=== PATIENT | male | born 1955 | race Caucasian/White ===

== ENCOUNTER 2021-09-08 15:08 | Observation (INO) | payer MEDICARE, SELFPAY ==
[2021-09-08] MEDS ORDERED: HYDROcodone/Acetaminophen 5/325 mg Tablet PO PRN (15:28)
[2021-09-08] MEDS ORDERED: Senokot S 8.6-50 MG TAB PO PRN (15:28)
[2021-09-08] MEDS ORDERED: Calcium Carbonate 500 MG ChewTAB PO PRN (15:28)
[2021-09-08] MEDS ORDERED: Guaifenesin DM 100-10/5 ML UDCUP PO PRN (15:28)
[2021-09-08] MEDS ORDERED: Ondansetron ODT 4 MG TAB PO PRN (15:28)
[2021-09-08] MEDS ORDERED: Acetaminophen 325 MG TAB PO PRN (15:28)
[2021-09-08] MEDS ORDERED: Loperamide HCl 2 MG CAP PO PRN (15:28)
[2021-09-08 15:40] LABS: #Basophils 0.1 10x3/uL (0.0-0.2); #Eosinphils 0.1 10x3/uL (0.0-0.5); #Monocytes 0.6 10x3/uL (0.0-1.1); #Neutrophils 5.3 10x3/uL (1.5-8.4); %Basophils 0.8 % (0.0-2.0); %Eosinophils 1.5 % (0.0-6.0); %Lymphocytes 21.1 % (18.0-47.0); %Monocytes 8.2 % (0.0-10.0); Hemoglobin 14.8 g/dL (13.5-17.5); Mean Corpuscular HGB CONC 34.3 g/dL (32.0-36.0); Mean Corpuscular Hemoglobin 31.3 pg (27.0-33.0); Mean Corpuscular Volume 91.1 fl (81.2-95.1); Mean Platelet Volume 9.3 fl (7.4-10.4); Platelet Count 220 10x3/uL (150-450); RBC Distribution Width 12.9 % (11.5-14.5); Red Blood Cell (RBC) Count 4.73 10x6/uL (4.32-5.72); White Blood Cell (WBC) Count 7.8 10x3/uL (3.5-10.5)
[2021-09-08] MEDS ORDERED: Communication Order-Pharmacy FS SCH (15:45)
[2021-09-08] MEDS ORDERED: Nitroglycerin 2% Ointment 1 INCH/1 GM Packet ONE (15:49)
[2021-09-08 15:56] LABS: ALT (SGPT) 33 U/L (8-55); AST (SGOT) 24 U/L (5-34); Albumin 4.3 g/dL (3.4-4.8); Alkaline Phosphatase 70 U/L (40-110); Anion Gap 14 mmol/L (10-20); BUN (Urea Nitrogen) 12 mg/dL (8.4-25.7); Bilirubin, Total 0.7 mg/dL (0.2-1.2); Calc. Creatinine Clearance 0 mL/min (70-130); Calcium 9.3 mg/dL (7.8-10.44); Carbon Dioxide 25 mmol/L (23-31); Chloride 105 mmol/L (98-107); Globulin 2.4 g/dL (2.4-3.5); Glucose 92 mg/dL (80-115); Potassium 3.9 mmol/L (3.5-5.1); Protein, Total 6.7 g/dL (5.8-8.1); Sodium 140 mmol/L (136-145)
[2021-09-08 16:05] LABS: Troponin I 0.405 ng/mL (< 0.028)
[2021-09-08 18:49] VITALS: BMI 27.1
[2021-09-08] MEDS: HYDROcodone/Acetaminophen 5/325 mg Tablet PO PRN (19:39)
[2021-09-08] MEDS: Nitroglycerin 2% Ointment 1 INCH/1 GM Packet TOP SCH (20:36)
[2021-09-08] MEDS: Nicotine 14 MG PATCH TD SCH (20:36)
[2021-09-09] MEDS: Sodium Chloride 0.9% 1,000 ML IV SCH ×2 (00:37→16:24)
[2021-09-09] MEDS: HYDROcodone/Acetaminophen 5/325 mg Tablet PO PRN ×2 (00:38→05:59)
[2021-09-09 02:36] LABS: SARS-CoV-2 NAA Rapid Test Not Detected (NotDetected)
[2021-09-09 04:57] LABS: Hemoglobin 13.9 g/dL (13.5-17.5); Mean Corpuscular Hemoglobin 32.1 pg (27.0-33.0); Mean Corpuscular Volume 91.7 fl (81.2-95.1); Mean Platelet Volume 9.4 fl (7.4-10.4); Platelet Count 187 10x3/uL (150-450); RBC Distribution Width 12.7 % (11.5-14.5); Red Blood Cell (RBC) Count 4.33 10x6/uL (4.32-5.72); White Blood Cell (WBC) Count 6.4 10x3/uL (3.5-10.5)
[2021-09-09 05:19] LABS: Anion Gap 14 mmol/L (10-20); BUN (Urea Nitrogen) 16 mg/dL (8.4-25.7); Calc. Creatinine Clearance 126 mL/min (70-130); Calcium 8.6 mg/dL (7.8-10.44); Carbon Dioxide 24 mmol/L (23-31); Cardiac Risk 6.3 (Less than 4.5); Chloride 107 mmol/L (98-107); Cholesterol 164 mg/dl (< 200 Desired); Glucose 94 mg/dL (80-115); HDL Cholesterol 26 mg/dL (>60 Neg Risk); LDL Cholesterol, Calculated 93 mg/dL; Potassium 4.1 mmol/L (3.5-5.1); Sodium 141 mmol/L (136-145); Triglycerides 224 mg/dL (Less than 150)
[2021-09-09] MEDS ORDERED: Ezetimibe 10 MG TAB PO SCH ×2 (05:45→09:00)
[2021-09-09] MEDS ORDERED: Amlodipine 5 MG TAB PO SCH ×2 (05:45→09:00)
[2021-09-09 05:49] LABS: MDiff Complete? YES
[2021-09-09 05:51] LABS: Eosinophils 3 % (0-10); Lymphocytes 25 % (21-51); Monocytes 10 % (0-10); Neutrophil 54 % (42-75); Reactive Lymphocytes 7 % (0-10)
[2021-09-09 05:53] LABS: Platelet Morphology Comment Appears Adequate
[2021-09-09 05:54] LABS: RBC Morphology Normal
[2021-09-09 06:04] LABS: PTT 25.9 sec (22.0-33.0); Prothrombin Time 10.4 sec (9.5-12.1)
[2021-09-09] MEDS ORDERED: Nitroglycerin 50 MG/250 ML BOT 250 ML ONE (07:16)
[2021-09-09] MEDS ORDERED: Heparin 10,000 UNITS/ 10 ML VIAL ONE ×2 (07:16→08:46)
[2021-09-09] MEDS ORDERED: Adenosine 6 MG/2 ML VIAL ONE (07:17)
[2021-09-09] MEDS ORDERED: Bivalirudin 250 MG VIAL ONE (07:17)
[2021-09-09] MEDS ORDERED: Verapamil 5 MG/2 ML VIAL ONE (07:17)
[2021-09-09] MEDS ORDERED: Lidocaine 1% 20 ML MDV ONE (07:19)
[2021-09-09] MEDS ORDERED: Lidocaine 1% MPF 2 ML VIAL ONE (07:19)
[2021-09-09] MEDS ORDERED: Midazolam HCl 2 mg/2 ml Vial ONE ×2 (07:20→09:04)
[2021-09-09] MEDS ORDERED: Fentanyl 100 MCG/2 ML VIAL ONE (07:20)
[2021-09-09] MEDS ORDERED: TICAGRELOR 90 MG TABLET ONE (08:33)
[2021-09-09] MEDS ORDERED: Aspirin 81 mg Enteric Coated Tablet PO SCH (09:00)
[2021-09-09] MEDS ORDERED: Nitroglycerin 0.4 MG TAB (25 Tab Bottle) SL PRN (09:13)
[2021-09-09] MEDS ORDERED: Sodium Chloride 0.9% 200 ML IV PRN (09:13)
[2021-09-09] MEDS ORDERED: Acetaminophen/Codeine 30-300mg Tablet PO PRN ×2 (09:13)
[2021-09-09 11:26] VITALS: BP 123/60; TEMP 98
[2021-09-09] MEDS ORDERED: Morphine 2 MG/ML VIAL SLOW IVP PRN (11:42)
[2021-09-09] MEDS ORDERED: Iopamidol 300 61% 100 ML VIAL FS ONE (12:37)
[2021-09-09] MEDS ORDERED: Iopamidol 300 61% 50 ML VIAL FS ONE (12:37)
[2021-09-09] MEDS: Nicotine 14 MG PATCH TD SCH (18:15)
[2021-09-09] MEDS: Nitroglycerin 2% Ointment 1 INCH/1 GM Packet TOP SCH (19:36)
[2021-09-09] MEDS ORDERED: TICAGRELOR 90 MG TABLET PO SCH (21:00)
[2021-09-10] MEDS ORDERED: Amlodipine 5 MG TAB PO SCH (09:00)
[2021-09-10] MEDS ORDERED: Ezetimibe 10 MG TAB PO SCH (09:00)
== END 2021-09-09 18:15 | disposition home or self-care (01) ==
LOC: CSHERS 15:08 → CSHTELE 16:48
PROVIDERS: ADMIT Specialist; ATTEND Specialist
PROC: B240ZZ3 Ultrasonography of Single Coronary Artery, Intravascular (ICD-10-PCS; principal; 2021-09-08)
PROC: 027135Z Dilation of Coronary Artery, Two Arteries with Two Drug-eluting Intraluminal Devices, Percutaneous Approach (ICD-10-PCS; 2021-09-08)
PROC: 4A023N7 Measurement of Cardiac Sampling and Pressure, Left Heart, Percutaneous Approach (ICD-10-PCS; 2021-09-08)
PROC: B2111ZZ Fluoroscopy of Multiple Coronary Arteries using Low Osmolar Contrast (ICD-10-PCS; 2021-09-08)
DX: I25.110 Atherosclerotic heart disease of native coronary artery with unstable angina pectoris (principal); I21.4 Non-ST elevation (NSTEMI) myocardial infarction; T82.855A Stenosis of coronary artery stent, initial encounter; I10 Essential (primary) hypertension; E78.5 Hyperlipidemia, unspecified; F17.210 Nicotine dependence, cigarettes, uncomplicated; M19.90 Unspecified osteoarthritis, unspecified site; I35.1 Nonrheumatic aortic (valve) insufficiency; Z86.73 Personal history of transient ischemic attack (TIA), and cerebral infarction without residual deficits; Z79.82 Long term (current) use of aspirin; Z79.899 Other long term (current) drug therapy; Z20.822 Contact with and (suspected) exposure to COVID-19
CPT/HCPCS: 71045; 80048; 80053; 80061; 84484 ×2; 85025 ×2; 85347 ×2; 85610; 85730; 92978; 93005 ×2; 93306; 93458; C1753; C1769 ×2; C1874 ×2; C1887 ×2; C1894 ×2; C9600; J2270; U0002; 36415; 92928; 93010; 96374; 99152; 99153; G0378; J0153; J0583; J1644; J2250; J3010; J7050; Q9967

== ENCOUNTER 2024-12-29 22:21 | Inpatient (IN) | payer MEDICARE ==
[2024-12-29 23:03] LABS: #Basophils 0.05 10x3/uL (0.0-0.2); #Eosinophils 0.11 10x3/uL (0.0-0.5); #Monocytes 0.55 10x3/uL (0.0-1.1); #Neutrophils 3.43 10x3/uL (1.5-8.4); %Basophils 0.9 % (0.0-2.0); %Eosinophils 2.0 % (0.0-6.0); %Lymphocytes 24.5 % (18.0-47.0); %Monocytes 10.0 % (0.0-10.0); %Neutrophils 62.2 % (40.0-75.0); Hematocrit 44.4 % (38.8-50.0); Hemoglobin 14.5 g/dL (13.5-17.5); Mean Corpuscular Hemoglobin 29.4 pg (27.0-33.0); Mean Corpuscular Volume 90.1 fL (81.2-95.1); Platelet Count 220 10x3/uL (150-450); Red Blood Cell (RBC) Count 4.93 10x6/uL (4.32-5.72); White Blood Cell (WBC) Count 5.51 10x3/uL (3.5-10.5)
[2024-12-29 23:48] LABS: ALT (SGPT) 28 U/L (Less than 45); AST (SGOT) 23 U/L (11-34); Albumin 4.0 g/dL (3.1-4.5); Alkaline Phosphatase 74 U/L (40-110); Anion Gap 14 mmol/L (10-20); BUN (Urea Nitrogen) 22 mg/dL (8.4-25.7); Bilirubin, Total 0.4 mg/dL (0.3-1.2); Calc. Creatinine Clearance 0 mL/min (70-130); Calcium 9.1 mg/dL (7.8-10.44); Carbon Dioxide 24 mmol/L (23-31); Chloride 110 mmol/L (98-107); Globulin 2.6 g/dL (2.4-3.5); Glucose 140 mg/dL (80-115); Potassium 4.0 mmol/L (3.5-5.1); Sodium 144 mmol/L (136-145)
[2024-12-30 00:08] LABS: Troponin I 0.292 ng/mL (< 0.028)
[2024-12-30] MEDS ORDERED: Aspirin Chewable 81 MG TAB ONE (01:00)
[2024-12-30] MEDS ORDERED: Melatonin 3 MG TAB PO PRN (01:21)
[2024-12-30] MEDS ORDERED: Calcium Carbonate 500 MG ChewTAB PO PRN (01:21)
[2024-12-30] MEDS ORDERED: Senokot S 8.6-50 MG TAB PO PRN (01:21)
[2024-12-30] MEDS ORDERED: Ondansetron PF 4 MG/2 ML Vial IVP PRN (01:21)
[2024-12-30] MEDS ORDERED: Acetaminophen 325 MG TAB PO PRN (01:21)
[2024-12-30] MEDS ORDERED: Guaifenesin DM 100-10/5 ML UDCUP PO PRN (01:21)
[2024-12-30] MEDS ORDERED: Nitroglycerin 0.4 MG TAB (25 Tab Bottle) SL PRN (01:24)
[2024-12-30 03:52] LABS: Cardiac Risk 4.4 (Less than 4.5); Cholesterol 145.0 mg/dl (< 200 Desired); HDL Cholesterol 33.0 mg/dL (>60 Neg Risk); LDL Cholesterol, Calculated 94.0 mg/dL; Triglycerides 88.0 mg/dL (Less than 150)
[2024-12-30 04:02] LABS: Troponin I 0.292 ng/mL (< 0.028)
[2024-12-30 08:20] LABS: Troponin I 0.257 ng/mL (< 0.028)
[2024-12-30] MEDS: Aspirin 81 mg Enteric Coated Tablet PO SCH ×2 (08:47→18:33)
[2024-12-30] MEDS: Famotidine 20 MG TAB PO SCH (08:47)
[2024-12-30] MEDS: Metoprolol Succinate XL 50 MG ER.TAB PO SCH (08:47)
[2024-12-30] MEDS: Ezetimibe 10 MG TAB PO SCH (08:51)
[2024-12-30] MEDS: FLU (Fluad Triv) 25-26 (65UP)PF 45 MCG/0.5 ML Syringe IM ONE (16:20)
[2024-12-30] MEDS ORDERED: Enoxaparin 80 MG (0.8 mL) SYRINGE SC SCH (21:00)
[2024-12-31] MEDS: Aspirin 81 mg Enteric Coated Tablet PO SCH (02:34)
[2024-12-31 05:13] LABS: #Basophils 0.04 10x3/uL (0.0-0.2); #Eosinophils 0.09 10x3/uL (0.0-0.5); #Monocytes 0.57 10x3/uL (0.0-1.1); #Neutrophils 4.44 10x3/uL (1.5-8.4); %Basophils 0.6 % (0.0-2.0); %Eosinophils 1.4 % (0.0-6.0); %Lymphocytes 21.5 % (18.0-47.0); %Monocytes 8.7 % (0.0-10.0); %Neutrophils 67.6 % (40.0-75.0); Hematocrit 42.9 % (38.8-50.0); Hemoglobin 14.2 g/dL (13.5-17.5); Mean Corpuscular Hemoglobin 29.3 pg (27.0-33.0); Mean Corpuscular Volume 88.5 fL (81.2-95.1); Platelet Count 206 10x3/uL (150-450); Red Blood Cell (RBC) Count 4.85 10x6/uL (4.32-5.72); White Blood Cell (WBC) Count 6.56 10x3/uL (3.5-10.5)
[2024-12-31 05:20] LABS: ALT (SGPT) 23 U/L (Less than 45); AST (SGOT) 20 U/L (11-34); Albumin 3.7 g/dL (3.1-4.5); Alkaline Phosphatase 66 U/L (40-110); Anion Gap 12 mmol/L (10-20); BUN (Urea Nitrogen) 16 mg/dL (8.4-25.7); Bilirubin, Total 0.6 mg/dL (0.3-1.2); Calc. Creatinine Clearance 119 mL/min (70-130); Calcium 8.9 mg/dL (7.8-10.44); Carbon Dioxide 24 mmol/L (23-31); Chloride 108 mmol/L (98-107); Globulin 2.6 g/dL (2.4-3.5); Glucose 90 mg/dL (80-115); Potassium 3.6 mmol/L (3.5-5.1); Sodium 140 mmol/L (136-145)
[2024-12-31] MEDS: Ezetimibe 10 MG TAB PO SCH (21:06)
[2025-01-01 00:52] VITALS: BMI 27.8
[2025-01-01 04:52] LABS: #Basophils 0.04 10x3/uL (0.0-0.2); #Eosinophils 0.10 10x3/uL (0.0-0.5); #Monocytes 0.63 10x3/uL (0.0-1.1); #Neutrophils 4.90 10x3/uL (1.5-8.4); %Basophils 0.5 % (0.0-2.0); %Eosinophils 1.3 % (0.0-6.0); %Lymphocytes 24.9 % (18.0-47.0); %Monocytes 8.3 % (0.0-10.0); %Neutrophils 64.7 % (40.0-75.0); Hematocrit 45.6 % (38.8-50.0); Hemoglobin 15.0 g/dL (13.5-17.5); Mean Corpuscular Hemoglobin 28.9 pg (27.0-33.0); Mean Corpuscular Volume 87.9 fL (81.2-95.1); Platelet Count 218 10x3/uL (150-450); Red Blood Cell (RBC) Count 5.19 10x6/uL (4.32-5.72); White Blood Cell (WBC) Count 7.58 10x3/uL (3.5-10.5)
[2025-01-01 05:08] LABS: ALT (SGPT) 25 U/L (Less than 45); AST (SGOT) 21 U/L (11-34); Albumin 3.8 g/dL (3.1-4.5); Alkaline Phosphatase 79 U/L (40-110); Anion Gap 14 mmol/L (10-20); BUN (Urea Nitrogen) 18 mg/dL (8.4-25.7); Bilirubin, Total 0.7 mg/dL (0.3-1.2); Calc. Creatinine Clearance 113 mL/min (70-130); Calcium 9.0 mg/dL (7.8-10.44); Carbon Dioxide 24 mmol/L (23-31); Chloride 107 mmol/L (98-107); Globulin 2.7 g/dL (2.4-3.5); Glucose 90 mg/dL (80-115); Potassium 3.8 mmol/L (3.5-5.1); Sodium 141 mmol/L (136-145)
[2025-01-01] MEDS ORDERED: PHENYLEPHRINE-NS 100 MCG/ML 10 ML SYRINGE ONE (07:03)
[2025-01-01] MEDS ORDERED: Heparin 10,000 UNITS/ 10 ML VIAL ONE (07:03)
[2025-01-01] MEDS ORDERED: Lidocaine 1% (PF) 30 ML VIAL ONE (07:03)
[2025-01-01] MEDS ORDERED: Communication Order-Pharmacy FS SCH (08:00)
[2025-01-01 08:32] VITALS: TEMP 98.3
[2025-01-01] MEDS: TICAGRELOR 90 MG TABLET PO SCH (09:23)
[2025-01-01] MEDS ORDERED: Iopamidol 300 61% 100 ML VIAL FS ONE (10:02)
[2025-01-01] MEDS ORDERED: Nitroglycerin 50 MG/250 ML BOT 250 ML ONE (12:08)
[2025-01-01 15:42] VITALS: BP 162/78
== END 2025-01-01 17:06 | disposition home or self-care (01) | DRG 287 ==
LOC: CSHERS 22:21 → CSHERHOLD 12-30 01:21 → CSHICU 12-30 06:05 → OBSVTOIN 12-30 14:45 → CSHTELE 12-30 16:49
PROVIDERS: ADMIT Student in an Organized Health Care Education/Training Program; ATTEND Hospitalist
PROC: B2111ZZ Fluoroscopy of Multiple Coronary Arteries using Low Osmolar Contrast (ICD-10-PCS; principal; 2024-12-30)
PROC: 4A023N7 Measurement of Cardiac Sampling and Pressure, Left Heart, Percutaneous Approach (ICD-10-PCS; 2024-12-30)
DX: R07.9 Chest pain, unspecified (principal); I24.9 Acute ischemic heart disease, unspecified; I10 Essential (primary) hypertension; F17.210 Nicotine dependence, cigarettes, uncomplicated; I16.0 Hypertensive urgency; I25.10 Atherosclerotic heart disease of native coronary artery without angina pectoris; E78.5 Hyperlipidemia, unspecified; H81.13 Benign paroxysmal vertigo, bilateral; R31.9 Hematuria, unspecified; Z95.5 Presence of coronary angioplasty implant and graft; Z98.890 Other specified postprocedural states
CPT/HCPCS: 36415; 71045; 80053; 80061; 83036; 84484; 85025; 93005; 93010; 93458; 99152; C1769; C1894; G0378; J0461; J1644; J2003; J2250; J3010; J7030; Q9967